=== PATIENT | male | born 1970 | race Hispanic/Latino ===

== ENCOUNTER 2018-12-12 12:18 | Emergency (ER) | payer OTHER ==
[~2018-12-12] VITALS: Ht 165.1 cm; Wt 83.9 kg
[2018-12-12] MEDS ORDERED: LOSARTAN-HCTZ1 EACH (13:35)
[2018-12-12] MEDS ORDERED: ROSUVASTATIN (13:35)
--- NOTE | 2018-12-12 13:45 | Diagnostic Imaging Report ---
Exam: Right ankle radiographs-3 views Clinical History: Inversion injury to the ankle. Comparison: None. Findings: There is a comminuted, minimally displaced, obliquely oriented fracture through the distal fibula with extension to the syndesmosis. There is mild widening of the syndesmosis as well as the medial and anterior ankle mortise. There is a small bony fragment at the anterior ankle mortise which could reflect a small talar avulsion fracture. There is Achilles enthesopathy. Impression: Comminuted, minimally displaced fracture of the distal fibula with extension to the syndesmosis and widening of the medial and anterior ankle mortise. Suspected small avulsion fracture involving the anterosuperior talus. Signed by: Dr. Deisy Beckett MD on 12/12/2018 1:42 PM
[2018-12-12] MEDS ORDERED: HYDROMORPHONE 2MG/ML 2 MG/ML ML IM STA (13:55)
[2018-12-12] MEDS ORDERED: ONDANSETRON HCL 4 MG ORAL DISINTEGRATING TAB PO ONE (14:00)
--- NOTE | 2018-12-12 15:27 | NUR ---
ASSISTED MD WITH APPLICATION OF CAST TO LOWER RIGHT LEG/ANKLE
--- NOTE | 2018-12-12 15:59 | Diagnostic Imaging Report ---
RIGHT ANKLE - 2 Images HISTORY: Post splinting , status post reduction COMPARISON: Right ankle radiographs December 12, 2018 FINDINGS: Overlying splint partially limits bone detail. Bones: Similar alignment of the oblique fracture involving the distal metadiaphysis of the fibula with mild posterior displacement. Joints: Similar marked widening of the medial ankle clear space. Soft tissues: Regional soft tissue swelling. IMPRESSION: 1. Mildly displaced distal fibular fracture. 2. Findings compatible with deltoid ligament insufficiency. Signed by: Dr. Mansoor Castellano D.O., M.M.M. on 12/12/2018 3:56 PM
[2018-12-12 16:34] VITALS: BP 135/83
[2018-12-12] MEDS ORDERED: HYDROMORPHONE 2MG/ML 2 MG/ML ML IM ONE ×2 (17:00→18:30)
== END 2018-12-12 16:38 | disposition home or self-care (01) ==
LOC: ER 12:18
DX: S82.61XA Displaced fracture of lateral malleolus of right fibula, initial encounter for closed fracture (principal); X50.1XXA Overexertion from prolonged static or awkward postures, initial encounter; Y99.0 Civilian activity done for income or pay; I10 Essential (primary) hypertension; E11.9 Type 2 diabetes mellitus without complications
CPT/HCPCS: 29515; 73600; 73610; 99284; J1170; Q0162